=== PATIENT | female | born 1970 | race Caucasian/White ===

== ENCOUNTER 2019-06-09 07:30 | Day surgery (SDC) | payer MEDICARE ==
[2019-06-08 10:54] VITALS: BMI 25.1
[2019-06-09] MEDS ORDERED: Midazolam HCl 2 mg/2 ml Vial ONE (07:39)
[2019-06-09] MEDS ORDERED: Sodium Bicarbonate 2.5 MEQ/5 ML VIAL ONE (07:39)
[2019-06-09] MEDS ORDERED: Fentanyl 100 MCG/2 ML VIAL ONE (07:39)
[2019-06-09 08:02] LABS: #Basophils 0.1 thou/uL (0.0-0.2); #Eosinphils 0.1 thou/uL (0.0-0.7); #Lymphocytes 2.6 thou/uL (1.20-3.40); #Monocytes 0.6 thou/uL (0.11-0.59); #Neutrophils 3.2 thou/uL (1.40-6.50); %Basophils 1.5 % (0.0-1.0); %Eosinophils 0.8 % (0.0-10.0); %Lymphocytes 40.3 % (21.0-51.0); %Neutrophils 48.5 % (42.0-75.0); Hemoglobin 9.3 g/dL (12.0-16.0); Mean Corpuscular HGB CONC 31.4 g/dL (32.0-36.0); Mean Corpuscular Hemoglobin 25.2 pg (27.0-31.0); Mean Corpuscular Volume 80.4 fL (78.0-98.0); Platelet Count 297 thou/uL (130-400); RBC Distribution Width 14.2 % (11.5-14.5); White Blood Cell (WBC) Count 6.5 thou/uL (4.8-10.8)
[2019-06-09 08:20] LABS: INR-International Normal Ratio 0.9; PTT 31.6 SEC (22.9-36.1); Prothrombin Time 12.4 SEC (12.0-14.7)
--- NOTE | 2019-06-09 09:56 | ULT ---
Ultrasound-guided nonfocal liver biopsy INDICATION: Elevated LFTs TECHNIQUE: Informed consent was obtained with the patient in the patient's mother prior to entering t ultrasound procedure suite. Preprocedure ultrasound identified a biopsy site within the anterior left hepatic lobe. The site was marked. The site was prepped and draped in the usual sterile fashion. Patient underwent conscious sedation under guidance of the radiology nurse. The patient received 50 mcg of IV fentanyl and 1 mg of IV Versed. Small dermatotomy was made over the the biopsy site. A 1 7-gauge core biopsy needle was guided down to the left hepatic lobe. 2 separate core passes utilizing an 18-gauge core biopsy gun were obtained of the left hepatic lobe. Post procedure images d emonstrated no significant intraparenchymal hematoma. Pressure was held after removal of needle at the biopsy site until hemostasis was obtained. The patient tolerated the biopsy without difficulty. IMPRESSION: Successful ultrasound-guided nonfocal liver biopsy
[2019-06-09 12:37] VITALS: BP 129/73; TEMP 98
== END 2019-06-09 10:40 | disposition home or self-care (01) ==
LOC: ULT 07:30
PROVIDERS: ATTEND Internal Medicine Gastroenterology
PROC: 0FB23ZX Excision of Left Lobe Liver, Percutaneous Approach, Diagnostic (ICD-10-PCS; principal; 2019-06-09)
DX: R94.5 Abnormal results of liver function studies (principal); E03.9 Hypothyroidism, unspecified; Z79.899 Other long term (current) drug therapy; Z88.5 Allergy status to narcotic agent
CPT/HCPCS: 36415; 47000; 76942; 85025; 85610; 85730; 88307; 88313; 88321; J2250; J3010

== ENCOUNTER 2022-09-01 13:12 | Outpatient (CLI) | payer MEDICARE ==
[2022-09-01 14:31] LABS: #Basophils 0.1 10x3/uL (0.0-0.2); #Monocytes 0.6 10x3/uL (0.0-1.1); #Neutrophils 6.6 10x3/uL (1.5-8.4); %Basophils 0.5 % (0.0-2.0); %Eosinophils 0.3 % (0.0-6.0); %Lymphocytes 22.8 % (18.0-47.0); %Neutrophils 70.2 % (40.0-75.0); Hemoglobin 9.4 g/dL (12.0-15.5); Mean Corpuscular Hemoglobin 22.7 pg (27.0-33.0); Mean Corpuscular Volume 75.6 fl (81.6-98.3); Mean Platelet Volume 9.7 fl (7.4-10.4); Platelet Count 340 10x3/uL (150-450); RBC Distribution Width 16.8 % (11.5-14.5); Red Blood Cell (RBC) Count 4.14 10x6/uL (3.90-5.03); White Blood Cell (WBC) Count 9.4 10x3/uL (3.5-10.5)
[2022-09-01 15:12] LABS: ALT (SGPT) 15 U/L (8-55); AST (SGOT) 19 U/L (5-34); Albumin 4.2 g/dL (3.5-5.0); Alkaline Phosphatase 106 U/L (40-110); Anion Gap 12 mmol/L (10-20); BUN (Urea Nitrogen) 6 mg/dL (7.0-18.7); Bilirubin, Total 0.5 mg/dL (0.2-1.2); Calc. Creatinine Clearance 0 mL/min (70-130); Calcium 8.8 mg/dL (7.8-10.44); Carbon Dioxide 25 mmol/L (22-29); Chloride 106 mmol/L (98-107); Estimated GFR 106; Globulin 2.4 g/dL (2.4-3.5); Glucose 116 mg/dL (70-105); Potassium 3.4 mmol/L (3.5-5.1); Protein, Total 6.6 g/dL (6.0-8.3); Sodium 140 mmol/L (136-145)
== END 2022-09-01 13:13 | disposition home or self-care (01) ==
LOC: LABBT 13:12
PROVIDERS: ATTEND Surgery
DX: Z01.818 Encounter for other preprocedural examination (principal); K64.3 Fourth degree hemorrhoids
CPT/HCPCS: 80053; 85025; 93005; 93010

== ENCOUNTER 2022-09-07 08:59 | Day surgery (SDC) | payer MEDICARE ==
[2022-09-04 09:50] VITALS: BMI 31.1
[2022-09-07] MEDS ORDERED: cefOXitin 2 GM VIAL ONE (09:52)
[2022-09-07] MEDS ORDERED: Lidocaine 1% MPF 2 ML VIAL ONE (09:53)
[2022-09-07] MEDS ORDERED: Sodium Chloride 0.9% 100 ML ONE (09:53)
[2022-09-07] MEDS ORDERED: fentaNYL PF 100 MCG/2 ML SYRINGE ONE (10:16)
[2022-09-07] MEDS ORDERED: Bupivacaine/Epinephrine 0.25% 30 ML VIAL ONE (10:17)
[2022-09-07] MEDS ORDERED: Bacitracin Zinc Ointment 30 gm TUBE ONE (10:58)
== END 2022-09-07 12:40 | disposition home or self-care (01) ==
LOC: SDC 08:59
PROVIDERS: ATTEND Surgery
PROC: 06BY0ZC Excision of Hemorrhoidal Plexus, Open Approach (ICD-10-PCS; principal; 2022-09-07)
DX: K64.3 Fourth degree hemorrhoids (principal); E07.9 Disorder of thyroid, unspecified; E78.00 Pure hypercholesterolemia, unspecified; Z79.890 Hormone replacement therapy; Z79.899 Other long term (current) drug therapy; Z88.8 Allergy status to other drugs, medicaments and biological substances; Z88.5 Allergy status to narcotic agent
CPT/HCPCS: 88304; J0694; J3490

== ENCOUNTER 2022-10-26 07:39 | Outpatient (CLI) | payer MEDICARE | END 2022-10-26 07:40 | disposition home or self-care (01) | LOC: ULT 07:39 | PROVIDERS: ATTEND Physician Assistant Medical | DX: D50.9 Iron deficiency anemia, unspecified (principal); K21.9 Gastro-esophageal reflux disease without esophagitis; K74.3 Primary biliary cirrhosis; K82.4 Cholesterolosis of gallbladder | CPT/HCPCS: 76705 ==

== ENCOUNTER 2024-01-07 09:39 | Outpatient (CLI) | payer MEDICARE | END 2024-01-07 09:40 | disposition home or self-care (01) | LOC: BICULT 09:39 | PROVIDERS: ATTEND Internal Medicine Gastroenterology | DX: K74.3 Primary biliary cirrhosis (principal); D50.9 Iron deficiency anemia, unspecified; K82.4 Cholesterolosis of gallbladder | CPT/HCPCS: 76705 ==